=== PATIENT | male | born 1950 | race Caucasian/White ===

== ENCOUNTER 2017-07-10 16:37 | Inpatient (IN) | payer OTHER, MEDICARE, BC ==
[~2017-07-10] VITALS: Ht 172.7 cm; Wt 80.0 kg
[~2017-07-10 16:37] MED LIST: AZIT250T43 PO; PROZ20CA11 PO; SULF-154 PO
[2017-07-10] MEDS ORDERED: IOHEXOL 350 MG/ML 10 ML VIAL (for RAD DIAG) IVCONTRAST ONE (16:38)
[2017-07-10] MEDS ORDERED: SODIUM CHLOR 0.9% 1000 ML INJ 1,000 ML IV SCH (16:57)
[2017-07-10 16:59] VITALS: BP 184/81; PULSE 73; RESP 14; TEMP 98.8; O2SAT 96
[2017-07-10] MEDS ORDERED: SODIUM CHLORIDE 0.9% FLUSH 10 ML FLUSH IVF PRN (17:00)
[2017-07-10] MEDS ORDERED: MORPHINE SULFATE 4 MG/ML INJ IV PUSH ONE (17:00)
[2017-07-10] MEDS ORDERED: ONDANSETRON HCL 4 MG/2 ML VIAL IV PUSH ONE (17:00)
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
[2017-07-10 17:25] VITALS: BP 176/82; PULSE 72; RESP 20; O2SAT 95; O2SAT 96
[2017-07-10 18:14] LABS: AUTOMATED NEUTROPHIL # 18.5 TH/MM3 (1.8-7.7); BASOPHIL # 0.1 TH/MM3 (0-0.2); BASOPHIL % 0.4 % (0.0-2.0); EOSINOPHIL # 0.1 TH/MM3 (0-0.4); EOSINOPHIL % 0.5 % (0.0-4.0); HEMATOCRIT 44.8 % (39.0-51.0); HEMOGLOBIN 15.9 GM/DL (13.0-17.0); LYMPH % 6.7 % (9.0-44.0); LYMPHOCYTE # 1.4 TH/MM3 (1.0-4.8); MEAN CELL VOLUME 90.1 FL (80.0-100.0); MEAN CORPUSCULAR HGB CONC 35.5 % (32.0-36.0); MEAN PLATELET VOLUME 8.5 FL (7.0-11.0); MONO % 6.1 % (0.0-8.0); MONOCYTE # 1.3 TH/MM3 (0-0.9); NEUT % 86.3 % (16.0-70.0); PLATELET COUNT 223 TH/MM3 (150-450); RED BLOOD COUNT 4.97 MIL/MM3 (4.50-5.90); RED CELL DISTRIBUTION WIDTH 13.1 % (11.6-17.2); WHITE BLOOD COUNT 21.4 TH/MM3 (4.0-11.0)
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
[2017-07-10 18:29] LABS: PROTHROMBIN TIME - PATIENT 9.8 SEC (9.8-11.6)
[2017-07-10 18:30] LABS: BICARBONATE 22.3 MEQ/L (21.0-32.0); BLOOD UREA NITROGEN 16 MG/DL (7-18); CALCIUM 8.3 MG/DL (8.5-10.1); CHLORIDE 110 MEQ/L (98-107); CREATININE 1.02 MG/DL (0.60-1.30); GLOMERULAR FILTRATION RATE 73 ML/MIN (>89); GLUCOSE,RANDOM 126 MG/DL (74-106); SODIUM (NA) 141 MEQ/L (136-145)
[2017-07-10] MEDS ORDERED: SODIUM CHLORIDE 0.9% FLUSH 10 ML FLUSH IV FLUSH PRN (18:45)
[2017-07-10] MEDS ORDERED: HYDROmorphone HCL PF 2 MG/ML VIAL IV PUSH ONE ×2 (18:45→20:45)
[2017-07-10] MEDS ORDERED: Post-op Orders (for Pharmacy) XX ONE (18:45)
[2017-07-10] MEDS ORDERED: NALOXONE HCL 0.4 MG/ML AMP IV PUSH PRN ×3 (18:45→22:30)
[2017-07-10] MEDS ORDERED: MORPHINE SULFATE 30 MG/30 ML PCA IV SCH ×2 (18:45→22:30)
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
[2017-07-10 19:30] VITALS: BP 170/79; PULSE 89; RESP 18; O2SAT 94
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
[2017-07-10] MEDS: PANTOPRAZOLE SOD 40 MG DELAYED RELEASE TAB PO SCH (20:58)
[2017-07-10] MEDS: SODIUM CHLOR 0.9% 1000 ML INJ 1,000 ML IV SCH (20:58)
[2017-07-10] MEDS: SODIUM CHLORIDE 0.9% FLUSH 10 ML FLUSH IV FLUSH SCH (21:00)
[2017-07-10 21:14] VITALS: BP 166/82; PULSE 86; RESP 18; O2SAT 95
[2017-07-10 22:00] VITALS: BP 167/83; PULSE 84; RESP 20; TEMP 97.8; O2SAT 92
[2017-07-10] MEDS ORDERED: PCA - TOTAL MG MORPHINE DELIVERED PER SHIFT SCH (22:00)
[2017-07-10] MEDS: ONDANSETRON HCL 4 MG/2 ML VIAL IV PUSH PRN (22:29)
[2017-07-11] VITALS (8 sets, daily range): BP systolic 137–178; BP diastolic 66–85; PULSE 67–83; RESP 18; TEMP 97.1–98; O2SAT 92–98
[2017-07-11] MEDS: ONDANSETRON HCL 4 MG/2 ML VIAL IV PUSH PRN (04:50)
[2017-07-11] MEDS ORDERED: PCA - TOTAL MG MORPHINE DELIVERED PER SHIFT SCH (06:00)
[2017-07-11 07:15] LABS: AUTOMATED NEUTROPHIL # 10.9 TH/MM3 (1.8-7.7); BASOPHIL % 0.2 % (0.0-2.0); HEMATOCRIT 44.9 % (39.0-51.0); HEMOGLOBIN 15.3 GM/DL (13.0-17.0); LYMPH % 4.7 % (9.0-44.0); LYMPHOCYTE # 0.6 TH/MM3 (1.0-4.8); MEAN CELL VOLUME 90.1 FL (80.0-100.0); MEAN CORPUSCULAR HEMOGLOBIN 30.7 PG (27.0-34.0); MEAN CORPUSCULAR HGB CONC 34.1 % (32.0-36.0); MEAN PLATELET VOLUME 9.1 FL (7.0-11.0); MONO % 5.2 % (0.0-8.0); MONOCYTE # 0.6 TH/MM3 (0-0.9); NEUT % 89.9 % (16.0-70.0); PLATELET COUNT 236 TH/MM3 (150-450); RED BLOOD COUNT 4.99 MIL/MM3 (4.50-5.90); RED CELL DISTRIBUTION WIDTH 13.1 % (11.6-17.2); WHITE BLOOD COUNT 12.2 TH/MM3 (4.0-11.0)
[2017-07-11] MEDS ORDERED: LACTULOSE SYRUP 20 GM/30 ML CUP PO PRN (07:15)
[2017-07-11] MEDS: METHOCARBAMOL 500 MG TAB PO SCH ×3 (07:30→20:54)
[2017-07-11 07:41] LABS: BICARBONATE 22.4 MEQ/L (21.0-32.0); CALCIUM 8.2 MG/DL (8.5-10.1); CREATININE 0.87 MG/DL (0.60-1.30)
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
[2017-07-11] MEDS: ACETAMINOPHEN 1000 MG/100 ML 100 ML IV SCH ×3 (08:05→20:54)
[2017-07-11] MEDS: DOCUSATE SODIUM 50 MG/SENNA 8.6 MG TAB PO SCH ×2 (08:05→20:54)
[2017-07-11] MEDS: POLYETHYLENE GLYCOL 17 GM PKG PO SCH (08:05)
[2017-07-11] MEDS: GABAPENTIN 300 MG CAP PO SCH ×3 (08:05→17:36)
[2017-07-11] MEDS: LIDOCAINE HCL 5% PATCH T-DERMAL SCH (08:07)
[2017-07-11] MEDS: REMOVE OLD LIDOCAINE PATCH T-DERMAL SCH (08:07)
[2017-07-11] MEDS: SODIUM CHLORIDE 0.9% FLUSH 10 ML FLUSH IV FLUSH SCH ×2 (09:00→20:54)
[2017-07-11] MEDS: KETOROLAC TROMETHAMINE 30 MG/ML (IVP) VIAL IV PUSH SCH ×3 (13:30→23:11)
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
[2017-07-11] MEDS: ACETAMINOPHEN/HYDROcodone 325 MG/10 MG TAB PO PRN ×2 (13:47→17:36)
[2017-07-11] MEDS ORDERED: fentaNYL 50 MCG/HR PATCH T-DERMAL SCH (14:00)
[2017-07-11] MEDS: RESP: ALBUTEROL 2.5 MG/IPRATROPIUM 0.5 MG NEB (SCH) NEB ×2 (17:18→22:10)
[2017-07-11] MEDS: PANTOPRAZOLE SOD 40 MG DELAYED RELEASE TAB PO SCH (17:36)
[2017-07-11] MEDS: SODIUM CHLOR 0.9% 1000 ML INJ 1,000 ML IV SCH (23:14)
[2017-07-12] MEDS: ACETAMINOPHEN 1000 MG/100 ML 100 ML IV SCH (02:16)
[2017-07-12] MEDS: METHOCARBAMOL 500 MG TAB PO SCH (06:14)
[2017-07-12] MEDS: KETOROLAC TROMETHAMINE 30 MG/ML (IVP) VIAL IV PUSH SCH ×2 (06:16→13:19)
[2017-07-12] MEDS: ACETAMINOPHEN/HYDROcodone 325 MG/10 MG TAB PO PRN ×3 (06:31→13:18)
[2017-07-12] MEDS: POLYETHYLENE GLYCOL 17 GM PKG PO SCH (07:21)
[2017-07-12] MEDS: LIDOCAINE HCL 5% PATCH T-DERMAL SCH (07:21)
[2017-07-12] MEDS: REMOVE OLD LIDOCAINE PATCH T-DERMAL SCH (07:21)
[2017-07-12] MEDS: GABAPENTIN 300 MG CAP PO SCH ×2 (07:22→13:17)
[2017-07-12] MEDS: SODIUM CHLORIDE 0.9% FLUSH 10 ML FLUSH IV FLUSH SCH (07:22)
[2017-07-12] MEDS: DOCUSATE SODIUM 50 MG/SENNA 8.6 MG TAB PO SCH (07:22)
[2017-07-12 07:54] VITALS: BP 169/78; PULSE 66; RESP 18; TEMP 97.8; O2SAT 92
[2017-07-12] MEDS: RESP: ALBUTEROL 2.5 MG/IPRATROPIUM 0.5 MG NEB (SCH) NEB ×2 (08:00→12:00)
[2017-07-12] MEDS ORDERED: HYDR-3583 PO (08:01)
[2017-07-12] MEDS ORDERED: PERI PO (08:01)
[2017-07-12] MEDS ORDERED: METH500T3 PO (08:01)
[2017-07-12] MEDS ORDERED: WALKER WHEELS/F1 MIS (08:02)
[2017-07-12 11:41] VITALS: BP 169/81; PULSE 68; RESP 18; TEMP 98; O2SAT 94
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
[2017-07-14] MEDS ORDERED: REMOVE OLD DURAGESIC (FENTANYL) PATCH T-DERMAL SCH (14:00)
== END 2017-07-12 15:37 | disposition home or self-care (01) | DRG 206 ==
LOC: NEPE 16:37 → NEDA 20:08 → N06A 21:21
PROVIDERS: ADMIT Surgery; ATTEND Surgery
PROC: 0HQ0XZZ Repair Scalp Skin, External Approach (ICD-10-PCS; principal; 2017-07-10)
DX: S27.321A Contusion of lung, unilateral, initial encounter (principal); J94.2 Hemothorax; S22.42XA Multiple fractures of ribs, left side, initial encounter for closed fracture; S01.01XA Laceration without foreign body of scalp, initial encounter; S06.0X0A Concussion without loss of consciousness, initial encounter; M54.9 Dorsalgia, unspecified; V13.4XXA Pedal cycle driver injured in collision with car, pick-up truck or van in traffic accident, initial encounter; Y93.55 Activity, bike riding
CPT/HCPCS: 12002; 70450; 71045; 71260; 72125; 72129; 72132; 74177; 80048; 80307; 85025; 85610; 85730; 86850; 86900; 86901; 94150; 94640; 94664; 94667; 94668; 96361; 96374; 96375; J0131; J1170; J1885; J2270; J2405; J7030; Q9967